=== PATIENT | female | born 1935 | race Caucasian/White ===

== ENCOUNTER 2016-08-01 10:44 | Emergency (ER) | payer MEDICARE ==
--- NOTE | 2016-08-01 11:10 | ER Document Report ---
ED Medical Screen (RME) - General Stated Complaint: FALL/RIB PAIN Notes: 81 yo female c/o left rib pain. pt tripped over her shoe and fell to floor hitting her left ribs and left muslim. + blood thinners, takes ASA daily. 2 cm laceration to left muslim, no active bleeding. + tenderness left lateral ribs TRAVEL OUTSIDE OF THE [place] IN LAST 30 DAYS: No - Related Data Allergies/Adverse Reactions: No Known Allergies Allergy (Unverified 04/02/14 09:12) Past Medical History - Past Medical History Cardiac Medical History: Reports: Hx Heart Attack - ? 2001, Hx Hypertension - on med Denies: Hx Coronary Artery Disease Pulmonary Medical History: Denies: Hx Asthma, Hx Bronchitis, Hx COPD, Hx Pneumonia Neurological Medical History: Denies: Hx Cerebrovascular Accident, Hx Seizures Musculoskeltal Medical History: Reports Hx Arthritis - Immunizations Hx Diphtheria, Pertussis, Tetanus Vaccination: No Physical Exam - Vital signs Vitals: Temp Pulse Resp BP Pulse Ox 98.2 F 70 18 158/74 H 97 08/01/16 11:03 08/01/16 11:03 08/01/16 11:03 08/01/16 11:03 08/01/16 11:03 Course - Vital Signs Vital signs: Temp Pulse Resp BP Pulse Ox 98.2 F 70 18 158/74 H 97 08/01/16 11:03 08/01/16 11:03 08/01/16 11:03 08/01/16 11:03 08/01/16 11:03
--- NOTE | 2016-08-01 15:29 | ER Document Report ---
ED General <ANNMARIE REYNOLDS - Last Filed: 08/01/16 15:50> - General Mode of Arrival: Ambulatory Information source: Patient TRAVEL OUTSIDE OF THE [place] IN LAST 30 DAYS: No - HPI Patient complains to provider of: Left Rib Pain Onset: Yesterday Onset/Duration: Sudden Associated symptoms: Other - Left rib pain, left forehead pain.. denies: Nausea , Vomiting <COLUMBA COVARRUBIAS - Last Filed: 08/01/16 16:04> - General Chief Complaint: Rib Pain Stated Complaint: FALL/RIB PAIN Notes: Patient is an 81-year-old female presenting to the emergency department after she tripped over her shoes last night and landed on her left side. Patient is concerned of left rib pain and left forehead pain from a small laceration. Patient denies any loss of consciousness, nausea, or vomiting. Patient states that she can walk normally. Patient takes an aspirin daily, but denies taking any other blood thinners. (COLUMBA COVARRUBIAS) - Related Data Allergies/Adverse Reactions: No Known Allergies Allergy (Unverified 04/02/14 09:12) Past Medical History - General Information source: Patient - Social History Smoking Status: Former Smoker Frequency of alcohol use: Occasional Drug Abuse: None Family History: Reviewed & Not Pertinent Patient has suicidal ideation: No Patient has homicidal ideation: No - Past Medical History Cardiac Medical History: Reports: Hx Heart Attack - ? 2001, Hx Hypercholesterolemia, Hx Hypertension - on med Denies: Hx Coronary Artery Disease Musculoskeltal Medical History: Reports Hx Arthritis Past Surgical History: Reports: Hx Breast Surgery - lumpectomy left - Immunizations Hx Diphtheria, Pertussis, Tetanus Vaccination: No Hx Pneumococcal Vaccination: 02/19/05 <COLUMBA COVARRUBIAS - Last Filed: 08/01/16 16:04> Review of Systems - Review of Systems Constitutional: No symptoms reported EENT: No symptoms reported Cardiovascular: No symptoms reported Respiratory: No symptoms reported Gastrointestinal: No symptoms reported. denies: Nausea, Vomiting Genitourinary: No symptoms reported Female Genitourinary: No symptoms reported Musculoskeletal: See HPI, Other - Left forehead pain, left rib pain. Skin: No symptoms reported Hematologic/Lymphatic: No symptoms reported Neurological/Psychological: No symptoms reported. denies: Weakness, Lost consciousness -: Yes All other systems reviewed and negative <COLUMBA COVARRUBIAS - Last Filed: 08/01/16 16:04> Physical Exam - Vital signs Interpretation: Hypertensive - General General appearance: Appears well, Alert - HEENT Head: Normocephalic, Other - 1 cm laceration to left forehead, well approximated and linear. Eyes: Normal Extraocular movements intact: Yes Pupils: PERRL - Respiratory Respiratory status: No respiratory distress Chest status: Nontender Breath sounds: Normal Chest palpation: Normal - Cardiovascular Rhythm: Regular Heart sounds: Normal auscultation Murmur: No - Abdominal Inspection: Normal Distension: No distension Bowel sounds: Normal Tenderness: Tender - Reproducable tenderness with no crepitance or step-off over left lower 8th and 9th rib anterior axillary line. - Back Back: Normal, Nontender - Extremities General lower extremity: Normal inspection, Nontender Forearm: Other - Small contusion to left forearm. - Neurological Neuro grossly intact: Yes Cognition: Normal Orientation: AAOx4 Ovando Coma Scale Eye Opening: Spontaneous Ovando Coma Scale Verbal: Oriented Marie Coma Scale Motor: Obeys Commands Marie Coma Scale Total: 15 Speech: Normal - Psychological Associated symptoms: Normal affect, Normal mood - Skin Skin Temperature: Warm Skin Moisture: Dry <COLUMBA COVARRUBIAS - Last Filed: 08/01/16 16:04> - Vital signs Vitals: Temp Pulse Resp BP Pulse Ox 98.2 F 70 18 158/74 H 97 08/01/16 11:03 08/01/16 11:03 08/01/16 11:03 08/01/16 11:03 08/01/16 11:03 Course - Diagnostic Test Radiology reviewed: Image reviewed, Reports reviewed <ANNMARIE REYNOLDS - Last Filed: 08/01/16 15:50> <COLUMBA COVARRUBIAS - Last Filed: 08/01/16 16:04> - Re-evaluation Re-evalutation: 08/01/16 15:46 I discussed radiology findings with the patient. Head injury and rib fracture instructions were discussed. She understands to return for worsening problem or concern, signs of pneumonia. She requests to take Aleve at home for pain. We opted not to close her laceration as with traction I could only open it just a minimal amount and with normal facial movements she had no separation with the wound edges extremely well approximated. Tetanus will be updated ( ANNMARIE REYNOLDS) - Vital Signs Vital signs: Temp Pulse Resp BP Pulse Ox 98.2 F 70 18 158/74 H 97 08/01/16 11:03 08/01/16 11:03 08/01/16 11:03 08/01/16 11:03 08/01/16 11:03 - Diagnostic Test Radiology results interpreted by me: 08/01/16 15:30 CT NAD, Ribs NAD (ANNMARIE REYNOLDS Juhi) Discharge <ANNMARIE REYNOLDS - Last Filed: 08/01/16 15:50> <COLUMBA COVARRUBIAS - Last Filed: 08/01/16 16:04> - Discharge Clinical Impression: Laceration of face, Contusion of chest wall with intact skin Condition: Good Disposition: HOME, SELF-CARE Instructions: Antibiotic Ointment Protection ([facility]), Tetanus Immunization Given ([facility]) Additional Instructions: Keep wound clean and apply light coat of neosporin. Return for any problem or concern. Return for increasing shortness of breath, signs of pneumonia such as fever, productive cough. Use an analgesic such as Aleve and take large breaths and cough to keep your lung expanding. Follow up with her primary care physician for further evaluation in the next 2-3 days if you're still having significant discomfort. Scribe Documentation - Scribe Written by Michael:: 08/01/2016 <COLUMBA COVARRUBIAS - Last Filed: 08/01/16 16:04>
[2016-08-01] MEDS ORDERED: TETANUS/DIPHTHERIA TOX-ADULT 0.5 ML SYR (>=7YO) IM ONE (15:48)
[2016-08-01 16:04] VITALS: BP 129/93
== END 2016-08-01 16:05 | disposition home or self-care (01) ==
LOC: ER 10:44
DX: S01.81XA Laceration without foreign body of other part of head, initial encounter (principal); S20.219A Contusion of unspecified front wall of thorax, initial encounter; R07.81 Pleurodynia; R51 Headache; W01.0XXA Fall on same level from slipping, tripping and stumbling without subsequent striking against object, initial encounter; E78.00 Pure hypercholesterolemia, unspecified; I10 Essential (primary) hypertension; Z87.891 Personal history of nicotine dependence; Z79.82 Long term (current) use of aspirin; I25.2 Old myocardial infarction; Z23 Encounter for immunization
CPT/HCPCS: 70450; 90471; 90714; 99284

== ENCOUNTER 2017-10-08 13:17 | Observation (INO) | payer MEDICARE ==
[2017-10-08] MEDS ORDERED: ASPIRIN 81 MG TABLET, CHEWABLE PO ONE (14:43)
--- NOTE | 2017-10-08 14:44 | ER Document Report ---
ED Medical Screen (RME) - General Chief Complaint: Palpitations Stated Complaint: ACCELERATED HEART RATE Time Seen by Provider: 10/08/17 14:36 Notes: 82 years old female presents today with on and off dizziness and lightheadedness , episodes of palpitation for the last 2-3 days. And also had tremors of the upper limbs. Denies any chest pain denies any fever chills cough or other constitutional symptoms. I have greeted and performed a rapid initial assessment of this patient. A comprehensive ED assessment and evaluation of the patient, analysis of test results and completion of the medical decision making process will be conducted by additional ED providers. PHYSICAL EXAMINATION: GENERAL: Well-appearing, well-nourished and in no acute distress. Pleasant elderly female HEAD: Atraumatic, normocephalic. EYES: Pupils equal round extraocular movements intact, conjunctiva are normal. ENT: Nares patent NECK: Normal range of motion LUNGS: No respiratory distress Musculoskeletal: Normal range of motion NEUROLOGICAL: Normal speech, normal gait. PSYCH: Normal mood, normal affect. SKIN: Warm, Dry, normal turgor, no rashes or lesions noted. TRAVEL OUTSIDE OF THE [place] IN LAST 30 DAYS: No - Related Data Allergies/Adverse Reactions: No Known Allergies Allergy (Unverified 04/02/14 09:12) Past Medical History - Social History Chew tobacco use (# tins/day): No Frequency of alcohol use: Rare Drug Abuse: None - Past Medical History Cardiac Medical History: Reports: Hx Heart Attack - ? 2001, Hx Hypercholesterolemia, Hx Hypertension - on med Denies: Hx Coronary Artery Disease Pulmonary Medical History: Denies: Hx Asthma, Hx Bronchitis, Hx COPD, Hx Pneumonia Neurological Medical History: Denies: Hx Cerebrovascular Accident, Hx Seizures Renal/ Medical History: Denies: Hx Peritoneal Dialysis Musculoskeltal Medical History: Reports Hx Arthritis Past Surgical History: Reports: Hx Breast Surgery - lumpectomy left - Immunizations Hx Diphtheria, Pertussis, Tetanus Vaccination: No Physical Exam - Vital signs Vitals: Temp Pulse Resp BP Pulse Ox 97.6 F 78 18 144/65 H 94 10/08/17 13:25 10/08/17 13:25 10/08/17 13:25 10/08/17 13:25 10/08/17 13:25 Course - Vital Signs Vital signs: Temp Pulse Resp BP Pulse Ox 97.6 F 78 18 144/65 H 94 10/08/17 13:25 10/08/17 13:25 10/08/17 13:25 10/08/17 13:25 10/08/17 13:25
[2017-10-08 15:13] LABS: ABSOLUTE BASOPHILS # (AUTO) 0.1 10^3/uL (0.0-0.2); ABSOLUTE LYMPHOCYTES (AUTO) 1.6 10^3/uL (0.5-4.7); ABSOLUTE MONOCYTES (AUTO) 1.1 10^3/uL (0.1-1.4); BASOPHILS % (AUTO) 0.6 % (0-2); EOSINOPHILS % (AUTO) 0.4 % (0-6); HEMATOCRIT 40.9 % (36.0-47.0); HEMOGLOBIN 13.8 g/dL (12.0-15.5); LYMPHOCYTES % (AUTO) 14.5 % (13-45); MEAN CORPUSCULAR HGB CONC 33.8 g/dL (32.0-36.0); MEAN CORPUSCULAR VOLUME 89 fl (80-97); MONOCYTES % (AUTO) 10.4 % (3-13); PLATELET COUNT 319 10^3/uL (150-450); RED BLOOD COUNT 4.62 10^6/uL (3.72-5.28); RED CELL DISTRIBUTION WIDTH 13.8 % (11.5-14.0); SEGMENTED NEUTROPHILS % (AUTO) 74.1 % (42-78); TOTAL CELLS COUNTED % (AUTO) 100 %; WHITE BLOOD COUNT 10.8 10^3/uL (4.0-10.5)
--- NOTE | 2017-10-08 15:24 | RADIOLOGY REPORT (SQ) ---
EXAM DESCRIPTION: CHEST SINGLE VIEW COMPLETED DATE/TIME: 10/08/2017 3:18 pm REASON FOR STUDY: Shortness of breath COMPARISON: 03/21/2009 EXAM PARAMETERS: NUMBER OF VIEWS: One view. TECHNIQUE: Single frontal radiographic view of the chest acquired. RADIATION DOSE: NA LIMITATIONS: None. FINDINGS: LUNGS AND PLEURA: No opacities, masses or pneumothorax. No pleural effusion. MEDIASTINUM AND HILAR STRUCTURES: No masses. Contour normal. HEART AND VASCULAR STRUCTURES: Heart normal in size. Normal vasculature. BONES: No acute findings. HARDWARE: None in the chest. OTHER: No other significant finding. IMPRESSION: NO ACUTE RADIOGRAPHIC FINDING IN THE CHEST. TECHNICAL DOCUMENTATION: JOB ID: [id number] [employer]- All Rights Reserved Reading location - IP/workstation name: [email or web address]
[2017-10-08 15:29] LABS: ALANINE AMINOTRANSFERASE 32 U/L (9-52); ALBUMIN 4.3 g/dL (3.5-5.0); ALKALINE PHOSPHATASE 89 U/L (38-126); ANION GAP 10 (5-19); ASPARTATE AMINO TRANSFERASE 39 U/L (14-36); BILIRUBIN,DIRECT 0.2 mg/dL (0.0-0.4); BILIRUBIN,TOTAL 0.5 mg/dL (0.2-1.3); BLOOD UREA NITROGEN 40 mg/dL (7-20); CALCIUM 10.5 mg/dL (8.4-10.2); CARBON DIOXIDE 32 mmol/L (22-30); CHLORIDE 97 mmol/L (98-107); CREATINE KINASE 69 U/L (30-135); GLUCOSE 102 mg/dL (75-110); POTASSIUM 4.4 mmol/L (3.6-5.0); SODIUM 138.8 mmol/L (137-145); TOTAL PROTEIN 7.2 g/dL (6.3-8.2)
[2017-10-08 15:41] LABS: CREATINE KINASE MB 2.95 ng/mL (<4.55); TROPONIN I 0.029 ng/mL
[2017-10-08] MEDS ORDERED: NORMAL SALINE 500 ML IV ONE (16:44)
--- NOTE | 2017-10-08 16:44 | ER Document Report ---
ED General - General Chief Complaint: Palpitations Stated Complaint: ACCELERATED HEART RATE Time Seen by Provider: 10/08/17 14:36 Mode of Arrival: Ambulatory Information source: Patient, Relative Notes: 82-year-old female with hypertension, hyperlipidemia, CAD, previous [place] in 2001 and an ablation in 2009 for an "irregular heartbeat" presents from home with her son with complaint of palpitations. Patient states that approximately 5 hours prior to arrival she experienced an episode of palpitations while sitting at the kitchen table. She states she tried to stand up and felt off balance. Patient had a similar episode of palpitations yesterday evening while at rest which self resolved. Patient denies any recent illnesses, fever, chills, chest pain, shortness of breath, diaphoresis. She does admit that she was nauseous this morning but had no vomiting. Patient denies any black or bloody stools, recent hospitalizations, change in medications.. TRAVEL OUTSIDE OF THE [place] IN LAST 30 DAYS: No - HPI Onset: Just prior to arrival Onset/Duration: Sudden, Gone Quality of pain: No pain Severity: None Associated symptoms: Nausea, Other - Dizziness. denies: Chest pain, Nonproductive cough, Headache, Vomiting, Shortness of breath Exacerbated by: Denies Relieved by: Denies Similar symptoms previously: Yes Recently seen / treated by doctor: Yes - Related Data Allergies/Adverse Reactions: No Known Allergies Allergy (Verified 10/08/17 22:01) Past Medical History - General Information source: Patient, Relative, [facility] Records - Social History Smoking Status: Former Smoker Chew tobacco use (# tins/day): No Frequency of alcohol use: Rare Drug Abuse: None Lives with: Alone Family History: Reviewed & Not Pertinent Patient has suicidal ideation: No Patient has homicidal ideation: No - Past Medical History Cardiac Medical History: Reports: Hx Heart Attack - ? 2001, Hx Hypercholesterolemia, Hx Hypertension - on med Denies: Hx Coronary Artery Disease Pulmonary Medical History: Denies: Hx Asthma, Hx Bronchitis, Hx COPD, Hx Pneumonia Neurological Medical History: Denies: Hx Cerebrovascular Accident, Hx Seizures Renal/ Medical History: Denies: Hx Peritoneal Dialysis Musculoskeltal Medical History: Reports Hx Arthritis Past Surgical History: Reports: Hx Breast Surgery - lumpectomy left - Immunizations Hx Diphtheria, Pertussis, Tetanus Vaccination: No Hx Pneumococcal Vaccination: 02/19/05 Review of Systems - Review of Systems Notes: REVIEW OF SYSTEMS: CONSTITUTIONAL : Denies fever, chills, or sweats. Denies recent illness. Denies weight loss, recent hospitalizations. EENT: Denies visula changes, eye pain. Denies nasal or sinus congestion or discharge. Denies sore throat, oral lesions, difficulty swallowing. CARDIOVASCULAR: Denies chest pain. Denies lower extremity edema. RESPIRATORY: Denies cough, cold, or chest congestion. Denies shortness of breath, difficulty breathing, or wheezing. GASTROINTESTINAL: Denies abdominal pain or distention. Denies vomiting, or diarrhea. Denies blood in vomitus, stools, or per rectum. Denies black, tarry stools. Denies constipation. GENITOURINARY: Denies difficulty urinating, painful urination, burning, frequency, blood in urine, or vaginal discharge. MUSCULOSKELETAL: Denies back or neck pain or stiffness. Denies joint pain or swelling. SKIN: Denies rash, lesions or sores. HEMATOLOGIC : Denies easy bruising or bleeding. LYMPHATIC: Denies swollen, enlarged glands. NEUROLOGICAL: Denies confusion or altered mental status. Denies passing out or loss of consciousness. Denies dizziness or lightheadedness. Denies headache. Denies weakness or paralysis or loss of use of either side. Denies problems with gait or speech. Denies sensory loss, numbness, or tingling. Denies seizures. PSYCHIATRIC: Denies anxiety or stress. Denies depression, suicidal ideation, or homicidal ideation. Physical Exam - Vital signs Vitals: Temp Pulse Resp BP Pulse Ox 97.6 F 78 18 144/65 H 94 10/08/17 13:25 10/08/17 13:25 10/08/17 13:25 10/08/17 13:25 10/08/17 13:25 - Notes Notes: PHYSICAL EXAMINATION: GENERAL: Well-appearing, well-nourished and in no acute distress. HEAD: Atraumatic, normocephalic. EYES: Pupils equal round and reactive to light, extraocular movements intact, conjunctiva are normal. ENT: Nares patent, oropharynx clear without exudates. Moist mucous membranes. NECK: Normal range of motion, supple without lymphadenopathy LUNGS: Breath sounds clear to auscultation bilaterally and equal. No wheezes rales or rhonchi. HEART: Regular rate and rhythm without murmurs ABDOMEN: Soft, nontender, nondistended abdomen. No guarding, no rebound. No masses appreciated. Female : deferred Musculoskeletal: Normal range of motion, no pitting or edema. No cyanosis. NEUROLOGICAL: Cranial nerves grossly intact. Normal speech, normal gait. Normal sensory, motor exams PSYCH: Normal mood, normal affect. SKIN: Warm, Dry, normal turgor, no rashes or lesions noted. Course - Re-evaluation Re-evalutation: Laboratory 10/08/17 10/08/17 10/08/17 15:00 15:00 15:00 WBC 10.8 H RBC 4.62 Hgb 13.8 Hct 40.9 MCV 89 MCH 30.0 MCHC 33.8 RDW 13.8 Plt Count 319 Seg Neutrophils % 74.1 Lymphocytes % 14.5 Monocytes % 10.4 Eosinophils % 0.4 Basophils % 0.6 Absolute Neutrophils 8.0 Absolute Lymphocytes 1.6 Absolute Monocytes 1.1 Absolute Eosinophils 0.0 Absolute Basophils 0.1 Sodium 138.8 Potassium 4.4 Chloride 97 L Carbon Dioxide 32 H Anion Gap 10 BUN 40 H Creatinine 0.98 Est GFR ( Amer) > 60 Est GFR (Non-Af Amer) 54 L Glucose 102 Calcium 10.5 H Phosphorus Magnesium Total Bilirubin 0.5 Direct Bilirubin 0.2 Neonat Total Bilirubin Not Reportable Neonat Direct Bilirubin Not Reportable Neonat Indirect Bili Not Reportable AST 39 H ALT 32 Alkaline Phosphatase 89 Creatine Kinase 69 CK-MB (CK-2) 2.95 Troponin I 0.029 Total Protein 7.2 Albumin 4.3 TSH Free T4 Free T3 pg/mL 10/08/17 10/08/17 10/08/17 15:00 15:00 18:12 WBC RBC Hgb Hct MCV MCH MCHC RDW Plt Count Seg Neutrophils % Lymphocytes % Monocytes % Eosinophils % Basophils % Absolute Neutrophils Absolute Lymphocytes Absolute Monocytes Absolute Eosinophils Absolute Basophils Sodium Potassium Chloride Carbon Dioxide Anion Gap BUN Creatinine Est GFR ( Amer) Est GFR (Non-Af Amer) Glucose Calcium Phosphorus 3.5 Magnesium 2.2 Total Bilirubin Direct Bilirubin Neonat Total Bilirubin Neonat Direct Bilirubin Neonat Indirect Bili AST ALT Alkaline Phosphatase Creatine Kinase CK-MB (CK-2) Troponin I Total Protein Albumin TSH Cancelled 0.41 L Free T4 Cancelled 1.70 Free T3 pg/mL Cancelled 3.42 10/08/17 10/08/17 10/08/17 18:12 19:30 21:14 WBC RBC Hgb Hct MCV MCH MCHC RDW Plt Count Seg Neutrophils % Lymphocytes % Monocytes % Eosinophils % Basophils % Absolute Neutrophils Absolute Lymphocytes Absolute Monocytes Absolute Eosinophils Absolute Basophils Sodium 137.5 Potassium 4.4 Chloride 100 Carbon Dioxide 29 Anion Gap 9 BUN 34 H Creatinine 0.82 Est GFR ( Amer) > 60 Est GFR (Non-Af Amer) > 60 Glucose 90 Calcium 10.0 Phosphorus 3.7 Magnesium 2.0 Total Bilirubin Direct Bilirubin Neonat Total Bilirubin Neonat Direct Bilirubin Neonat Indirect Bili AST ALT Alkaline Phosphatase Creatine Kinase 79 CK-MB (CK-2) Troponin I 0.056 Total Protein Albumin TSH Free T4 Free T3 pg/mL Chest X-Ray 10/08/17 14:43 IMPRESSION: NO ACUTE RADIOGRAPHIC FINDING IN THE CHEST. 10/08/17 17:05 cardiology consult initiated 10/08/17 17:[address] Aceves for cardiology who recommends adding TSH, T3, T4. He is willing to consult on the patient. Patient accepted by hospitalist 10/08/17 23:19 82-year-old female with hypertension, hyperlipidemia, CAD, previous [place] in 2001 and an ablation in 2009 for an "irregular heartbeat" presents from home with her son with complaint of palpitations. Patient states that approximately 5 hours prior to arrival she experienced an episode of palpitations while sitting at the kitchen table. She states she tried to stand up and felt off balance. Patient had a similar episode of palpitations yesterday evening while at rest which self resolved. Patient denies any recent illnesses, fever, chills, chest pain, shortness of breath, diaphoresis. She does admit that she was nauseous this morning but had no vomiting. Patient denies any black or bloody stools, recent hospitalizations, change in medications. Upon arrival patient was placed on site monitor and an EKG was obtained which showed the patient to be in atrial fibrillation with multiple PVCs. PVC is without leukocytosis or anemia. CMP is without electrolyte abnormalities. TSH was found to be mildly low. Magnesium and phosphorus are within normal limits. Troponin was within normal limits. Patient remained stable throughout her ED course. I am concerned that patient is having paroxysmal A. fib with RVR causing her to have palpitations, nausea and dizziness. Patient will be admitted for further evaluation of her palpitations. 10/08/17 23:20 10/08/17 23:22 - Vital Signs Vital signs: Temp Pulse Resp BP Pulse Ox 97.9 F 57 L 16 149/65 H 100 10/08/17 20:54 10/08/17 20:54 10/08/17 20:54 10/08/17 20:54 10/08/17 20:54 - Laboratory Result Diagrams: 10/08/17 15:00 10/08/17 21:14 Laboratory results interpreted by me: 10/08/17 10/08/17 15:00 15:00 WBC 10.8 H Chloride 97 L Carbon Dioxide 32 H BUN 40 H Est GFR (Non-Af Amer) 54 L Calcium 10.5 H AST 39 H - Diagnostic Test Radiology reviewed: Image reviewed, Reports reviewed - EKG Interpretation by Me EKG shows normal: Sinus rhythm Rate: Normal Rhythm: NSR Gurley/QRS: LBBB When compared to previous EKG there are: Changes noted, Other - Multiple PVCs Discharge - Discharge Clinical Impression: Near syncope, Palpitations, Lightheadedness, Diaphoresis, Nausea alone Hypertension Qualifiers: Hypertension type: essential hypertension Qualified Code(s): I10 - Essential ( primary) hypertension Condition: Good Disposition: ADMITTED OBSERVATION Admitting Provider: Hospitalist Unit Admitted: Telemetry
[2017-10-08 16:46] LABS: PHOSPHORUS 3.5 mg/dL (2.5-4.5)
[2017-10-08 19:18] LABS: FREE T3 3.42 pg/mL (2.77-5.27); FREE T4 (FREE THYROXINE) 1.7 ng/dL (0.78-2.19)
[2017-10-08 19:32] LABS: THYROID STIMULATING HORMONE 0.41 uIU/mL (0.47-4.68)
--- NOTE | 2017-10-08 19:44 | PDOC H&P ---
History of Present Illness Admission Date/PCP: 10/08/17 17:34 Patient complains of: Palpitations History of Present Illness: CATY LEE is a 82 year old female With a past history of [place] , previous cardioversion and ablation for "fast heartbeat" in 2009 ; presented to the ED with irregular heartbeat , palpitations and lightheadedness Cardiac monitoring showed the left bundle branch branch block with multiple APCs and VPCs Patient had no chest pain or shortness of breath She was subsequently admitted under hospitalist service and cardiology consult will be obtained in a.m. Past Medical History Cardiac Medical History: Reports: Myocardial Infarction - ? 2001, Hyperlipidema , Hypertension - on med Denies: Coronary Artery Disease Pulmonary Medical History: Denies: Asthma, Bronchitis, Chronic Obstructive Pulmonary Disease (COPD), Pneumonia Neurological Medical History: Denies: Seizures Musculoskeltal Medical History: Reports: Arthritis Hematology: Denies: Anemia Social History Information Source: Patient Lives with: Alone Smoking Status: Former Smoker - Advance Directive Resuscitation Status: Full Code Surrogate healthcare decision maker:: Daughter Meera Family History Parental Family History Reviewed: Yes - Mother of old age and father of heart disease Children Family History Reviewed: Yes Sibling(s) Family History Reviewed.: Yes - Sister had cancer Medication/Allergy Home Medications: Aspirin [Aspirin EC] 81 mg PO DAILY 04/02/14 Ergocalciferol (Vitamin D2) [Vitamin D2] 2,000 unit PO ASDIR 04/02/14 Hydrochlorothiazide 25 mg PO DAILY 04/02/14 Letrozole 2.5 mg PO DAILY 04/02/14 Lisinopril 20 mg PO DAILY 04/02/14 Multivitamin [Tab-A-Haley] 1 each PO DAILY 04/02/14 [place]-3 Fatty Acids [Fish Oil] 300 mg PO DAILY 04/02/14 Simvastatin 20 mg PO DAILY 04/02/14 Vitamin E 100 unit PO DAILY 04/02/14 Cetirizine HCl 1 tab PO DAILY 10/08/17 Simvastatin 1 tab PO DAILY 10/08/17 Allergies/Adverse Reactions: No Known Allergies Allergy (Unverified 04/02/14 09:12) Review of Systems Constitutional: ABSENT: chills, fever(s), headache(s), weight gain, weight loss Eyes: ABSENT: visual disturbances Ears: ABSENT: hearing changes Cardiovascular: PRESENT: as per HPI, palpitations. ABSENT: chest pain, dyspnea on exertion, orthropnea Respiratory: ABSENT: cough, hemoptysis Gastrointestinal: ABSENT: abdominal pain, constipation, diarrhea, hematemesis, hematochezia, nausea, vomiting Genitourinary: ABSENT: dysuria, hematuria Musculoskeletal: ABSENT: joint swelling Integumentary: ABSENT: rash, wounds Neurological: ABSENT: abnormal gait, abnormal speech, confusion, dizziness, focal weakness, syncope Psychiatric: ABSENT: anxiety, depression, homidical ideation, suicidal ideation Endocrine: ABSENT: cold intolerance, heat intolerance, polydipsia, polyuria Hematologic/Lymphatic: ABSENT: easy bleeding, easy bruising Physical Exam Vital Signs: Temp Pulse Resp BP Pulse Ox 97.6 F 78 18 126/66 H 97 10/08/17 13:25 10/08/17 13:25 10/08/17 16:01 10/08/17 16:01 10/08/17 17:17 General appearance: PRESENT: no acute distress, cooperative Head exam: PRESENT: atraumatic, normocephalic Eye exam: PRESENT: conjunctiva pink, EOMI, PERRLA. ABSENT: scleral icterus Neck exam: ABSENT: carotid bruit, JVD, lymphadenopathy, thyromegaly Respiratory exam: PRESENT: clear to auscultation clare. ABSENT: rales, rhonchi, wheezes Cardiovascular exam: PRESENT: irregular rhythm. ABSENT: diastolic murmur, rubs , systolic murmur Pulses: PRESENT: normal dorsalis pedis pul Vascular exam: PRESENT: normal capillary refill GI/Abdominal exam: PRESENT: normal bowel sounds, soft. ABSENT: distended, guarding, mass, organolmegaly, rebound, tenderness Extremities exam: PRESENT: full ROM. ABSENT: calf tenderness, clubbing, pedal edema Neurological exam: PRESENT: alert Skin exam: PRESENT: dry, intact, warm. ABSENT: cyanosis, rash Results Laboratory Results: 10/08/17 18:12 TSH 0.41 L Free T4 1.70 Free T3 pg/mL 3.42 10/08/17 10/08/17 15:00 15:00 WBC 10.8 H Hgb 13.8 Hct 40.9 Sodium 138.8 Potassium 4.4 Chloride 97 L Carbon Dioxide 32 H BUN 40 H Creatinine 0.98 Calcium 10.5 H EKG Comments: Normal sinus rhythm left bundle branch block Multiple APCs and VPCs Impressions: Chest X-Ray 10/08/17 14:43 IMPRESSION: NO ACUTE RADIOGRAPHIC FINDING IN THE CHEST. Assessment & Plan - Diagnosis (1) Cardiac arrhythmia Qualifiers: Is this a current diagnosis for this admission?: Yes (2) History of coronary artery disease Is this a current diagnosis for this admission?: Yes (3) Hypertension Qualifiers: Hypertension type: essential hypertension Qualified Code(s): I10 - Essential (primary) hypertension Is this a current diagnosis for this admission?: Yes (4) Lightheadedness Is this a current diagnosis for this admission?: Yes - Time Time Spent with patient: We will admit the patient for observation to telemetry unit Serial cardiac enzymes Cardiac monitoring Echocardiogram will be scheduled in a.m. Cardiology consult in a.m. Thyroid profile was requested Time Spent: 50 to 70 Minutes
[2017-10-08] MEDS: METOPROLOL TARTRATE 25 MG TABLET PO SCH (21:20)
[2017-10-08] MEDS ORDERED: ENOXAPARIN SODIUM INJ 40 MG/0.4 ML DISP.SYRIN SUBCUT ONE (21:30)
[2017-10-08] MEDS ORDERED: METOPROLOL TARTRATE PF/INJ 5 MG/5 ML SDV IV ONE (21:42)
[2017-10-08] MEDS ORDERED: LISINOPRIL 10 MG TABLET PO ONE (22:00)
[2017-10-08] MEDS ORDERED: SIMVASTATIN 10 MG TABLET PO SCH (22:00)
[2017-10-08 22:09] LABS: ANION GAP 9 (5-19); BLOOD UREA NITROGEN 34 mg/dL (7-20); CARBON DIOXIDE 29 mmol/L (22-30); CHLORIDE 100 mmol/L (98-107); CREATINE KINASE 79 U/L (30-135); GLUCOSE 90 mg/dL (75-110); PHOSPHORUS 3.7 mg/dL (2.5-4.5); POTASSIUM 4.4 mmol/L (3.6-5.0); SODIUM 137.5 mmol/L (137-145)
[2017-10-08] MEDS ORDERED: AMIODARONE HCL 150 MG in DEXTROSE 5%-WATER 100 ML IV ONE (22:15)
[2017-10-08] MEDS ORDERED: DEXTROSE 5%-WATER 500 ML with AMIODARONE HCL 900 MG IV PRN ×2 (22:15)
[2017-10-08] MEDS: NORMAL SALINE 1000 ML 1,000 ML IV PRN (22:47)
--- NOTE | 2017-10-08 23:43 | EKG REPORT ---
SEVERITY:- ABNORMAL ECG - ATRIAL FIBRILLATION LEFT BUNDLE BRANCH BLOCK : Confirmed by: Radha Marinelli 08-Oct-2017 23:41:53
--- NOTE | 2017-10-08 23:43 | EKG REPORT ---
SEVERITY:- ABNORMAL ECG - SINUS RHYTHM LEFT BUNDLE BRANCH BLOCK : Confirmed by: Radha Marinelli 08-Oct-2017 23:42:32
--- NOTE | 2017-10-08 23:43 | EKG REPORT ---
SEVERITY:- ABNORMAL ECG - SINUS RHYTHM PROBABLE LEFT ATRIAL ABNORMALITY LEFT BUNDLE BRANCH BLOCK : Confirmed by: Radha Marinelli 08-Oct-2017 23:42:03
[2017-10-09 01:58] LABS: CREATINE KINASE MB 3.07 ng/mL (<4.55); TROPONIN I 0.045 ng/mL
[2017-10-09 08:09] LABS: CHOLESTEROL 167.92 mg/dL (0-200); CREATINE KINASE 52 U/L (30-135); TRIGLYCERIDES 97 mg/dL (<150)
[2017-10-09 08:24] LABS: DIRECT LDL 75 mg/dL (<100)
[2017-10-09 08:27] LABS: CREATINE KINASE MB 2.57 ng/mL (<4.55); TROPONIN I 0.027 ng/mL
--- NOTE | 2017-10-09 09:36 | PDOC TRANSFER SUMMARY ---
General Admission Date/PCP: 10/08/17 17:34 Admission Date: 10/08/17 Transfer Date: 10/09/17 Accepting Facility: [facility] Resuscitation Status: Full Code - Transfer Diagnosis (1) Cardiac arrhythmia Is this a current diagnosis for this admission?: Yes (2) History of coronary artery disease Is this a current diagnosis for this admission?: Yes (3) Hypertension Is this a current diagnosis for this admission?: Yes (4) Near syncope Is this a current diagnosis for this admission?: Yes (5) Brendon-tachy syndrome Is this a current diagnosis for this admission?: Yes - Transfer Medications Home Medications: Hydrochlorothiazide 25 mg PO DAILY 04/02/14 Letrozole 2.5 mg PO DAILY 04/02/14 Lisinopril 20 mg PO BID 04/02/14 Multivitamin [Tab-A-Haley] 1 each PO DAILY 04/02/14 Simvastatin 20 mg PO DAILY 04/02/14 Aspirin [Aspirin 325 mg Tablet] 325 mg PO DAILY 10/08/17 Calcium Carbonate [Calcium] 600 mg PO DAILY 10/08/17 Cetirizine HCl 10 mg PO DAILY 10/08/17 [place]-3/Dha/Epa/Fish Oil [Fish Oil 1,000 mg Softgel] 1,000 mg PO DAILY 10/08/17 Vitamin E (Dl, Acetate) [Vitamin E 400 Unit Capsule] 400 unit PO DAILY 10/08/17 Transfer Medications: Current Medications Aspirin (Ecotrin 81 Mg Ec Tablet) 81 mg PO DAILY HERMELINDA Stop: 11/08/17 09:59 Cetirizine HCl (Zyrtec 10 Mg Tablet) 10 mg PO DAILY HERMELINDA Stop: 11/08/17 09:59 Enoxaparin Sodium (Lovenox Inj 40 Mg/0.4 Ml Disp.Syrin) 40 mg SUBCUT DAILY HERMELINDA Stop: 11/08/17 09:59 Sodium Chloride (Nacl 0.9% 1000 Ml Iv Soln) 1,000 mls @ 75 mls/hr IV CONTINUOUS PRN PRN Reason: THIS MED IS NOT "PRN" Stop: 11/07/17 19:47 Last Admin: 10/08/17 22:47 Dose: 1,000 ml Amiodarone HCl 900 mg/ (Dextrose) 500 mls @ 0 mls/hr IV CONTINUOUS PRN; Protocol; Per Protocol PRN Reason: THIS MED IS NOT "PRN" Stop: 10/11/17 22:14 Last Admin: 10/08/17 22:45 Dose: 900 mg Letrozole (Femara 2.5 Mg Tablet) 2.5 mg PO DAILY HERMELINDA Stop: 11/08/17 09:59 Metoprolol Tartrate (Lopressor 25 Mg Tablet) 25 mg PO Q12 HERMELINDA Stop: 11/07/17 21:59 Last Admin: 10/08/17 21:20 Dose: 25 mg Multivitamins (Tab-A-Haley (Multiple Vitamin) Tablet) 1 tab PO DAILY HERMELINDA Stop: 11/08/17 09:59 Patient Own Medication (Ergocalciferol (Vitamin D2) [Vitamin D2]) 2,000 unit PO DAILY HERMELINDA Stop: 11/08/17 09:59 Patient Own Medication ([place]-3 Fatty Acids [Fish Oil]) 300 mg PO DAILY HERMELINDA Stop: 11/08/17 09:59 Simvastatin (Zocor 10 Mg Tablet) 20 mg PO QHS HERMELINDA Stop: 11/07/17 21:59 Last Admin: 10/08/17 21:20 Dose: 20 mg - Allergies Allergies/Adverse Reactions: No Known Allergies Allergy (Verified 10/08/17 22:01) Hospital Course Hospital Course: Mrs. 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 fib with RVR -or nonsustained V. tach Cardiology consult was obtained and it was suggested that patient be transferred to a tertiary center for further management - pacemaker- Patient has remained hemodynamically stable Troponins are in intermediate range EKG this am is NSR LBBB Physical Exam Vital Signs: Temp Pulse Resp BP Pulse Ox 97.6 F 61 20 148/79 H 97 10/09/17 07:46 10/09/17 07:46 10/09/17 07:46 10/09/17 07:46 10/09/17 07:46 Intake & Output 10/08/17 10/09/17 10/10/17 00:59 00:59 00:59 Intake Total 0 852 Balance 0 852 Weight 75.1 kg 74.3 kg General appearance: PRESENT: no acute distress, well-developed, well-nourished Head exam: PRESENT: atraumatic, normocephalic Eye exam: PRESENT: conjunctiva pink, EOMI, PERRLA. ABSENT: scleral icterus Ear exam: PRESENT: normal external ear exam Mouth exam: PRESENT: moist, tongue midline Neck exam: ABSENT: carotid bruit, JVD, lymphadenopathy, thyromegaly Respiratory exam: PRESENT: clear to auscultation clare. ABSENT: rales, rhonchi, wheezes Cardiovascular exam: PRESENT: RRR. ABSENT: diastolic murmur, rubs, systolic murmur Pulses: PRESENT: normal dorsalis pedis pul Vascular exam: PRESENT: normal capillary refill GI/Abdominal exam: PRESENT: normal bowel sounds, soft. ABSENT: distended, guarding, mass, organolmegaly, rebound, tenderness Rectal exam: PRESENT: deferred Extremities exam: PRESENT: full ROM. ABSENT: calf tenderness, clubbing, pedal edema Neurological exam: PRESENT: alert, awake, oriented to person, oriented to place , oriented to time, oriented to situation, CN II-XII grossly intact. ABSENT: motor sensory deficit Psychiatric exam: PRESENT: appropriate affect, normal mood. ABSENT: homicidal ideation, suicidal ideation Skin exam: PRESENT: dry, intact, warm. ABSENT: cyanosis, rash Results Laboratory Results: 10/08/17 21:14 10/08/17 10/08/17 10/08/17 18:12 18:12 21:14 Sodium 137.5 Potassium 4.4 Chloride 100 Carbon Dioxide 29 Anion Gap 9 BUN 34 H Creatinine 0.82 Est GFR ( Amer) > 60 Est GFR (Non-Af Amer) > 60 Glucose 90 Calcium 10.0 Phosphorus 3.7 Magnesium 2.0 Triglycerides Cholesterol LDL Cholesterol Direct VLDL Cholesterol HDL Cholesterol TSH 0.41 L Free T4 1.70 Free T3 pg/mL 3.42 10/09/17 07:35 Sodium Potassium Chloride Carbon Dioxide Anion Gap BUN Creatinine Est GFR ( Amer) Est GFR (Non-Af Amer) Glucose Calcium Phosphorus Magnesium Triglycerides 97 Cholesterol 167.92 LDL Cholesterol Direct 75 VLDL Cholesterol 19.0 HDL Cholesterol 67 TSH Free T4 Free T3 pg/mL 10/08/17 10/08/17 10/09/17 19:30 21:14 01:25 Creatine Kinase 79 CK-MB (CK-2) 3.07 Troponin I 0.056 0.045 10/09/17 10/09/17 07:35 07:35 Creatine Kinase 52 CK-MB (CK-2) 2.57 Troponin I 0.027 Impressions: Chest X-Ray 10/08/17 14:43 IMPRESSION: NO ACUTE RADIOGRAPHIC FINDING IN THE CHEST. Plan Discharge Plan: transfer to [facility] when a bed is available Time Spent: Greater than 30 Minutes
[2017-10-09] MEDS ORDERED: ASPIRIN 81 MG TABLET, ENT COATED PO SCH (10:00)
[2017-10-09] MEDS ORDERED: ENOXAPARIN SODIUM INJ 40 MG/0.4 ML DISP.SYRIN SUBCUT SCH (10:00)
[2017-10-09] MEDS ORDERED: (PENDING PHARMACY ID) (Omega-3 Fatty Acids [Fish Oil] 300 MG) PO SCH (10:00)
[2017-10-09] MEDS ORDERED: CETIRIZINE HCL PO SCH (10:00)
[2017-10-09] MEDS ORDERED: CETIRIZINE 10 MG TABLET PO SCH (10:00)
[2017-10-09] MEDS ORDERED: LISINOPRIL 10 MG TABLET PO SCH (10:00)
[2017-10-09] MEDS ORDERED: LETROZOLE 2.5 MG TABLET PO SCH (10:00)
[2017-10-09] MEDS ORDERED: (PENDING PHARMACY ID) (Ergocalciferol (Vitamin D2) [Vitamin D2] 2,000 UNIT) PO SCH (10:00)
[2017-10-09] MEDS ORDERED: (PENDING PHARMACY ID) (Lisinopril [Lisinopril] 20 MG) PO SCH (10:00)
[2017-10-09] MEDS ORDERED: MULTIVITAMIN TABLET PO SCH (10:00)
[2017-10-09] MEDS ORDERED: (PENDING PHARMACY ID) (Simvastatin [Simvastatin] 20 MG) PO SCH (10:00)
--- NOTE | 2017-10-09 10:20 | EKG REPORT ---
SEVERITY:- ABNORMAL ECG - SINUS RHYTHM PAIRED VENTRICULAR PREMATURE COMPLEXES LEFT BUNDLE BRANCH BLOCK : Confirmed by: Radha Marinelli 09-Oct-2017 10:19:54
[2017-10-09] MEDS: METOPROLOL TARTRATE 25 MG TABLET PO SCH (10:51)
[2017-10-09 11:37] VITALS: BP 146/66
[2017-10-09] MEDS: NORMAL SALINE 1000 ML 1,000 ML IV PRN (13:06)
--- NOTE | 2017-10-09 14:30 | CONSULTATION REPORT E ---
Consultation Report NAME: CATY LEE : 1935 AGE: 82Y DATE: 10/09/2017 316 A TO: LAURIE FAUST M.D. FROM: Pablo ELIAS, Requesting Physician TIME: Patient seen at 11:00 a.m. today. REASON FOR CONSULTATION: Atrial fibrillation with rapid ventricular response, converted to sinus bradycardia. The patient has features of tachybrady syndrome. HISTORY OF PRESENT ILLNESS: The patient is a pleasant 81-year-old female with known history of hypertension, chronic left bundle branch block pattern, and hyperlipidemia, who states that in 2009 she had an ablation for atrial arrhythmia. It does not clear whether it was an SVT or atrial flutter or atrial fibrillation. The patient had remained asymptomatic until last night when she started having episodes of palpitations, which she complains of irregular heartbeat with lightheadedness. There is no syncope. There is no chest pain or discomfort. There is no shortness of breath. There are no TIA or CVA symptoms. There is no leg edema. There is no PND, orthopnea. The patient did feel her palpitations. In the emergency room, she was found to have sinus rhythm with sinus bradycardia with left bundle branch block pattern with frequent apices. Last night, she went into atrial fibrillation with rapid ventricular response and she was initially placed on amiodarone drip, which had to be held, so she converted to sinus bradycardia with a heart rate going down to 46, although the patient has been asymptomatic. When the heart rate was up, the patient did have palpitations and some dizziness, but blood pressure was stable and there was no chest pain or discomfort and no shortness of breath. At present, the patient is in sinus bradycardia. The patient states this is the first time she has had symptoms since her ablation in 2009. PAST MEDICAL HISTORY: Positive for history of hypertension. Denies history of [place] or coronary artery disease or angina. She has no history of diabetes mellitus or thyroid disease. She states that she has a problem with her eye and needs eye surgery and needs cardiac clearance for that. She denies any history of rheumatic fever, congenital heart disease. History of hypertension, well controlled on NADEEN inhibitor at home. She is not on SA or AV lam block agent at home. There is no history of thyroid disease. There is a history of hyperlipidemia. There is no history of TIA or CVA. There is no history of asthma or bronchitis and no history of pulmonary embolism or sleep apnea. There is no history of seizures. PAST SURGICAL HISTORY: Positive for left breast lumpectomy, which was benign. She has also had melanoma removed from her left lower leg skin. This has not recurred and there is no sign of malignancy. She also had tonsillectomy when she was young. ALLERGIES: The patient has no known allergies. SOCIAL HISTORY: The patient does not smoke. There is no history of ETOH abuse. DISPOSITION: The patient is a FULL CODE. Her daughter is the surrogate healthcare decision maker. FAMILY HISTORY: Positive for coronary artery disease/[place] in her father who of an [place]. There is also cancer in a sister. The organ involved is not known. SOCIAL HISTORY: The patient was a former smoker. She has not smoked in many years. There is no history of ETOH abuse. MEDICATIONS: 1. Aspirin 325 mg p.o. x1. 2. Aspirin 81 mg p.o. daily. 3. Cetirizine (Zyrtec) 10 mg p.o. daily. 4. Lovenox 40 mg subcutaneously daily. 5. She was on an amiodarone drip, which has now been held. 6. Normal saline 50 mL wide open and normal saline at 75 mL per hour. 7. Metoprolol 25 mg p.o. q. 12 hours. 8. Simvastatin 20 mg p.o. daily at bedtime. 9. Multivitamin 1 tablet p.o. daily. 10. Prompton 3 acid ethyl esters with Lovaza 1 g p.o. daily. REVIEW OF SYSTEMS: CONSTITUTIONAL: Denies any fever, chills, or rigors. HEAD: Denies headache or head injury. EYES: No history of amblyopia or diplopia. States that there is a problem with her eye and needs surgery for that, but she is not really very detailed about the illness of her eye. There is no amaurosis fugax. EARS: No history of tinnitus. No history of hearing loss. No history of recurrent ear infections. NOSE: No history of hay fever. No history of nosebleeds. No history of nasal polyps. MOUTH: No history of altered taste sensation. No ulcers in the mouth. No bleeding from the gums. THROAT: No odynophagia or dysphagia. No history of recurrent sore throats. SKIN: No history of pruritus. Past history of melanoma of the skin with no recurrence. No history of psoriasis. No history of eczema. No history of pruritus. No history of yellowish discoloration of the skin. NECK: No neck pain. No swelling in the neck. LUNGS: No history of wheezing, cough, or sputum production. No history of asthma or COPD. No history of sleep apnea. No history of hemoptysis or pleuritic chest pain. No history of pulmonary embolism. CARDIAC: History of hypertension, well controlled on NADEEN inhibitor at home. No history of coronary artery disease. No history of congestive heart failure. History of atrial arrhythmia status post ablation 10 years ago. The patient, at present, presents with tachybrady syndrome with the patient having atrial fibrillation with rapid ventricular response and converts to sinus rhythm with a heart rate in the high 40s to the low 50s. No history of PND, orthopnea, leg edema. History of palpitations present. History of dizziness with the palpitations, but no syncope. No leg edema. GASTROINTESTINAL: No history of GERD. No history of peptic ulcer disease. No history of GI bleed. No history of altered bowel movements. No history of fatty food intolerance. No history of hepatitis. No history of cirrhosis. No history of jaundice. No history of hematemesis, hematochezia, or melena. ENDOCRINE: No history of diabetes mellitus. No history of thyroid disease. No history of polydipsia or polyuria. No history of heat or cold intolerance. RENAL: No history of chronic kidney disease. No symptoms of UTI. No history of hematuria, pyuria, dysuria. MUSCULOSKELETAL: History of arthritis present, but no history of collagen vascular disease. METABOLIC: History of hyperlipidemia present. No history of gout. CENTRAL NERVOUS SYSTEM: No history of TIA or CVA. No history of headaches, migraines, or seizures. No history of gait imbalance. No history of sleep apnea. PSYCHIATRIC: No history of anxiety or depression. No history of suicidal ideation or homicidal ideation. VASCULAR: No history of calf or buttock claudication. No history of DVT. HEMATOLOGICAL: No history of bleeding diathesis. No history of clotting disorders. HOME MEDICATIONS: Include: 1. Aspirin 325 mg p.o. daily. 2. Calcium carbonate 600 mg p.o. daily. 3. Cetirizine 10 mg p.o. daily. 4. Hydrochlorothiazide 25 mg p.o. daily. 5. Letrozole 2.5 mg p.o. daily. 6. Lisinopril 20 mg p.o. b.i.d. 7. Multivitamin 1 tablet p.o. daily. 8. Lovaza 1000 mg capsule 1 p.o. daily. 9. Simvastatin 20 mg p.o. daily. 10. Vitamin E 400 units p.o. daily. PHYSICAL EXAMINATION: GENERAL: The patient is well built and well nourished, in no acute distress. She is lying flat in bed with no problems. She is well groomed. VITAL SIGNS: She is afebrile with a temperature of 97.5 degrees Fahrenheit, pulse is 56 beats per minute, blood pressure 146/66, respirations are 20 per minute, O2 saturations are 96% on room air. HEAD: Atraumatic, normocephalic. EYES: Pupils are equal, round, regular, reactive to light and accommodation. Extraocular movements are normal. There is no conjunctival pallor. There is no scleral icterus. EARS: Tympanic membranes are intact. External auditory canals are clear. NOSE: There is no deviated nasal septum. There is no inflammation of the nasal mucous membrane. MOUTH: Mucous membranes of the mouth are slightly dry. Tongue is dry. There are no ulcers in the mouth. There is no bleeding from the gums. THROAT: There is no redness of the oropharynx. There is no exudate. SKIN: There is no skin rash. There is no petechia or ecchymosis. There are no skin lesions. NECK: Supple. There is no JVD. Carotids are equal. There is no bruit. There is no lymphadenopathy. There is no goiter. Trachea is central. LUNGS: Clear to auscultation and percussion without any rhonchi, rales, or wheezing. There is no chest wall tenderness. CARDIOVASCULAR: S1, S2 is heard. There is no S3 gallop. There is no S4 gallop. S1 is of normal intensity present since the patient is in sinus bradycardia. There is a systolic murmur in the left sternal border of the apex. There is no rub. ABDOMEN: Soft, nontender. There is no hepatosplenomegaly. Bowel sounds are well heard. There are no tender areas or masses. EXTREMITIES: Femorals are well felt. Leg pulses are well felt. There are no femoral bruits. There is no cyanosis or clubbing. There is no pedal edema. There is no cellulitis. There is no DVT or calf tenderness. CENTRAL NERVOUS SYSTEM: The patient is conscious, awake, alert, oriented x3 with no focal deficit. PSYCHIATRIC: The patient's judgment and insight are intact. Her affect is normal. DIAGNOSTIC STUDIES: Review of the monitor strip shows no ventricular arrhythmia. The patient, last night, had atrial fibrillation with a ventricular response 138-140 beats per minute, subsequently went into sinus bradycardia after she received her shot duration of amiodarone infusion. Her EKG shows atrial fibrillation with left bundle branch block pattern at 116 beats per minute. This is the second EKG. Her EKG on admission shows sinus rhythm with blanchable apices. Left bundle branch block pattern, which is chronic. The patient's chest x-ray is negative for any acute process. NOTE: All the EKGs that were done and the EKG strips and the chest x-ray was reviewed and interpreted by me. LABORATORY: The patient's white count is 10,800, hemoglobin is 13.8, hematocrit is 40.9, platelet count is 319,000. The patient's sodium is 137, potassium 4.4, chloride is 100, CO2 is 29. The patient's BUN is 34, creatinine 0.82. GFR is greater than 60. Glucose is 90, calcium is 10, the magnesium is 2.0, phosphorus 3.7. Her CPK and CPK-MBs are negative. The troponin I is negative/indeterminate at 0.056, 0.045 and 0.027. Her triglycerides are 97. Her total cholesterol is 167.92. Her LDL cholesterol is very good at 75, HDL cholesterol is good at 67. Her thyroid function test shows a low TSH of 0.41, but her free T4 is normal at 1.70 and a free T4 is normal at 3.42. Her liver function tests show borderline elevated AST of 39 with 36 *------*. The rest of the liver function tests are normal. IMPRESSION: 1. Atrial fibrillation with rapid ventricular response, paroxysmal, converted to sinus bradycardia. 2. Sick sinus syndrome/tachybrady syndrome. In view of unable to give any meaningful or AV lam block agents or drugs to keep her in sinus rhythm, the patient will definitely need a permanent pacemaker to protect her for bradycardia induced by medication. 3. Hypertension. 4. Systolic murmur. 5. Hyperlipidemia. 6. Arthritis. RECOMMENDATIONS: Would strongly recommend transfer the patient to tertiary care center for placement of a permanent pacemaker and subsequently an anti-arrhythmic agent. Also, would recommend that the patient should have an echocardiogram and later a stress test. These can be done after the permanent pacemaker has been placed or they can do the echocardiogram prior to the pacemaker insertion. Would strongly recommend that the patient be transferred to a tertiary care center. The patient was seen for about 50 minutes with more than 50% of the time spent in direct patient care. The patient's medications have been reviewed and medication adjustments have been suggested. Note that the family *------*. Also, Lopressor has not yet been given to the patient because of bradycardia. NOTE: Medical decision making is of high complexity. The case has been discussed with the hospitalist and arrangements have been made for the patient to be transferred. The patient, if she desires, can follow up with me, the option given to the patient. Initially, the patient wanted to go to her ex-hospital, but later said that she would prefer someone in [facility]. Hence, Dr. Thakur has made arrangements for the patient to be transferred to [facility] in [place]. DICTATING PHYSICIAN: LAURIE FAUST M.D. [id number] PHY#: [id number] ID: [id number] JOB#: [id number] ACCT: [id number] cc:LAURIE FAUST M.D. >
[2017-10-09 14:58] LABS: CREATINE KINASE MB 2.2 ng/mL (<4.55); TROPONIN I 0.017 ng/mL
--- NOTE | 2017-10-09 23:20 | EKG REPORT ---
SEVERITY:- ABNORMAL ECG - SINUS RHYTHM VENTRICULAR PREMATURE COMPLEX PROBABLE LEFT ATRIAL ABNORMALITY LEFT BUNDLE BRANCH BLOCK : Confirmed by: Radha Marinelli 09-Oct-2017 23:19:56
[2017-10-10] MEDS ORDERED: OMEGA-3 ACID ETHYL ESTERS 1 GM CAPSULE PO SCH (10:00)
[2017-10-10] MEDS ORDERED: VITAMIN E (DL, ACETATE) 400 UNIT CAPSULE PO SCH (10:00)
[2017-10-10] MEDS ORDERED: (PENDING PHARMACY ID) (Omega-3/Dha/Epa/Fish Oil [Fish Oil 1,000 Mg Softgel] 1,000 MG) PO SCH (10:00)
== END 2017-10-09 15:15 | disposition short-term general hospital (02) ==
LOC: ER 13:17 → EH 17:34 → 4N 20:05 → 3W 22:00
PROVIDERS: ADMIT Internal Medicine; ATTEND Internal Medicine
DX: I49.9 Cardiac arrhythmia, unspecified (principal); I25.10 Atherosclerotic heart disease of native coronary artery without angina pectoris; I10 Essential (primary) hypertension; R55 Syncope and collapse; I49.5 Sick sinus syndrome; I44.7 Left bundle-branch block, unspecified; R01.1 Cardiac murmur, unspecified; E78.5 Hyperlipidemia, unspecified; I48.0 Paroxysmal atrial fibrillation; M19.90 Unspecified osteoarthritis, unspecified site; I25.2 Old myocardial infarction; Z79.899 Other long term (current) drug therapy; Z79.82 Long term (current) use of aspirin; Z98.890 Other specified postprocedural states; Z85.820 Personal history of malignant melanoma of skin; Z82.49 Family history of ischemic heart disease and other diseases of the circulatory system; Z87.891 Personal history of nicotine dependence
CPT/HCPCS: 93005 ×3; 94640; 99285; 96360; 36415 ×2; 84439; 82553 ×2; 82550 ×2; 83735; 84100; 84443; 85025; 80048; 80053; 84484 ×2; 84481; 80061; 71045; 93010 ×2; G0378 ×3; A9270 ×6; J3490; J1650; J7060; J7030 ×2; J7040; J0282

== ENCOUNTER 2018-02-15 01:12 | Emergency (ER) | payer MEDICARE ==
[2018-02-15 01:47] VITALS: BP 136/69
--- NOTE | 2018-02-15 02:19 | ER Document Report ---
ED General - General Mode of Arrival: Ambulatory Information source: Patient TRAVEL OUTSIDE OF THE [place] IN LAST 30 DAYS: No - General Chief Complaint: Abdominal Swelling Stated Complaint: LEFT SIDE PAIN/SWELLING Time Seen by Provider: 02/15/18 02:00 Notes: Patient is an 82-year-old female with a pacemaker and a history of afib presents to the emergency department accompanied by daughter and son complaining of left upper extremity swelling and abdominal swelling onset today. Patient states that she was discharged from [facility] today following a hysterectomy due to suspicions of cancer (yet to receive results from biopsy) and a diagnosis of a subclavian blood clot. Daughter states on their way home, the patient began to "leak fluid" from the left arm and abdomen area. She states while in the hospital , the patient became dehydrated and received a copious amount of fluids today. She states she was told to resume taking Eliquis today and to follow up on 02/18/2018. Patient denies any trouble breathing, chest pain, numbness or tingling sensations or abdominal pain. Patient's PCP is Dr. Brown. (LUCHO SANCHEZ) - Related Data Allergies/Adverse Reactions: No Known Allergies Allergy (Verified 10/08/17 22:01) Past Medical History - General Information source: Patient, Relative - Social History Smoking Status: Unknown if Ever Smoked Family History: Reviewed & Not Pertinent - Past Medical History Cardiac Medical History: Reports: Hx Atrial Fibrillation, Hx Heart Attack - ? 2001, Hx Hypercholesterolemia, Hx Hypertension - on med Musculoskeletal Medical History: Reports Hx Arthritis Past Surgical History: Reports: Hx Breast Surgery - lumpectomy left, Hx Pacemaker - Immunizations Hx Diphtheria, Pertussis, Tetanus Vaccination: No Hx Pneumococcal Vaccination: 02/19/05 Review of Systems - Review of Systems Constitutional: No symptoms reported EENT: No symptoms reported Cardiovascular: No symptoms reported Respiratory: No symptoms reported Gastrointestinal: See HPI, Abdominal pain Genitourinary: No symptoms reported Female Genitourinary: No symptoms reported Musculoskeletal: See HPI Skin: No symptoms reported Hematologic/Lymphatic: No symptoms reported Neurological/Psychological: No symptoms reported -: Yes All other systems reviewed and negative Physical Exam - Vital signs Vitals: Temp Pulse Resp BP Pulse Ox 97.3 F 61 18 136/69 H 98 02/15/18 01:46 02/15/18 01:46 02/15/18 01:46 02/15/18 01:46 02/15/18 01:46 - Notes Notes: GENERAL: Alert, interacts well. No acute distress. HEAD: Normocephalic, atraumatic. EYES: Pupils equal, round, and reactive to light. Extraocular movements intact. ENT: Oral mucosa moist, tongue midline. NECK: Full range of motion. Supple. Trachea midline. LUNGS: Clear to auscultation bilaterally, no wheezes, rales, or rhonchi. No respiratory distress. HEART: Regular rate and rhythm. No murmurs, gallops, or rubs. ABDOMEN: Soft, non-tender. Bowel sounds present in all 4 quadrants. EXTREMITIES: Moves all 4 extremities spontaneously. Edema to the left upper extremity which is seeping fluid. 2+ pulses. No signs of cellulitis. Good profusion. NEUROLOGICAL: Alert and oriented x3. Normal speech. PSYCH: Normal affect, normal mood. SKIN: Warm, dry, normal turgor. 5 trochanter states across the abdomen, well- appearing, bruising. (LUCHO SANCHEZ) Course - Re-evaluation Re-evalutation: 02/15/18 02:19 Patient is well-appearing alert oriented recently had a hysterectomy in outside hospital. Daughter states she was given fluids and upon traveling home they noticed that she was having watery weeping from her left upper extremity. She was told she had a blood clot in her shoulder and her left upper extremity and was restarted on her Eliquis for paroxysmal A. fib. She is currently taking her blood splinter as directed. She denies any chest pain or shortness of breath or abdominal pain at this time. She states that she thought she had minor weeping around her abdomen but otherwise no weeping of her lower extremities. Her symptoms are suggestive of IV fluid she received in having another clot in her left upper extremity is causing back pressure which is causing weeping of her left upper extremity which is minor. I explained the pathology to the family who did not feel like any labs or imaging warranted at this time based on history clot from outside hospital per the daughter who is a good historian. Advised to continue take Eliquis she has follow-up with her primary care physician this coming Saturday. I did give him return precautions regarding any signs of infection or worsening of symptoms to return for reevaluation. Of note, she has no physical findings of congestive heart failure causing this at this time is isolated to only her left upper extremity with known DVT. No weeping in other extremities no chest pain or shortness of breath with normal lung exam (JERAMIE HELM) - Vital Signs Vital signs: Temp Pulse Resp BP Pulse Ox 97.3 F 65 18 136/69 H 98 02/15/18 01:46 02/15/18 02:20 02/15/18 01:46 02/15/18 01:46 02/15/18 01:46 Discharge - Discharge Clinical Impression: Edema extremities Condition: Good Disposition: HOME, SELF-CARE Instructions: Edema, Peripheral ([facility]) Additional Instructions: Please follow-up with your primary care physician on Saturday as previously scheduled or sooner for any other concerns in the emergency department Referrals: LUIS IQBAL MD [EMERITUS] - Follow up as needed Scribe Attestation: 02/16/18 15:45 I personally performed the services described in the documentation, reviewed and edited the documentation which was dictated to the scribe in my presence, and it accurately records my words and actions (JERAMIE HELM) Scribe Documentation - Scribe Written by Michael:: Michael Jade, 02/15/2018 02:35 acting as scribe for :: Anthony
== END 2018-02-15 02:36 | disposition home or self-care (01) ==
LOC: ER 01:12
DX: R60.0 Localized edema (principal); R19.00 Intra-abdominal and pelvic swelling, mass and lump, unspecified site; R10.9 Unspecified abdominal pain; I48.91 Unspecified atrial fibrillation; M79.89 Other specified soft tissue disorders; I10 Essential (primary) hypertension; Z79.01 Long term (current) use of anticoagulants; Z79.899 Other long term (current) drug therapy; Z90.710 Acquired absence of both cervix and uterus
CPT/HCPCS: 99283

== ENCOUNTER 2018-06-24 06:31 | Day surgery (SDC) | payer MEDICARE ==
[~2018-06-24 06:31] MED LIST: BUPIVACAINE HCL 0.75% INJ/PF (7.5 MG/1 ML) 10 ML SDV OS PRN; KETOROLAC TROMETHAMINE 0.45% 4 DROP/0.4 ML DROPERETTE OS PRN; LIDOCAINE 4% INJ/PF (40 MG/ML) 5 ML AMPUL OS PRN
[2018-06-24] MEDS ORDERED: CHONDR SU A NA/HYALUR INTRAOC KIT (SURGICARE) ONE (06:57)
[2018-06-24] MEDS ORDERED: EPINEPHRINE INJ/PF 1 MG/1 ML AMPULE ONE (06:57)
[2018-06-24] MEDS ORDERED: LIDOCAINE 1% INJ-PF (10 MG/ML) 30 ML SDV ONE (06:57)
[2018-06-24] MEDS: TROPICAMIDE 1% OPH SOLN 3 ML OS PRN ×3 (07:00→07:25)
[2018-06-24] MEDS: CYCLOPENTOLATE 0.2%/PHENYLEPHRINE 1% OPH SOLN 2 ML OS PRN ×3 (07:00→07:25)
[2018-06-24] MEDS: TETRACAINE HCL 0.5% OPH SOLN 0.6 ML DROPERETTE OS PRN ×2 (07:00→07:25)
[2018-06-24] MEDS: BESIFLOXACIN HCL 0.6% OPH SUSP 5 ML BOTTLE OS PRN ×5 (07:00→07:58)
[2018-06-24] MEDS ORDERED: FENTANYL CITRATE INJ/PF 100 MCG/2 ML AMPUL ONE (07:15)
[2018-06-24] MEDS ORDERED: ONDANSETRON HCL INJ/PF 4 MG/2 ML SDV ONE (07:15)
[2018-06-24] MEDS ORDERED: MIDAZOLAM 2 MG/2 ML INJ ONE (07:15)
[2018-06-24] MEDS: DORZOLAMIDE HCL 2%/TIMOLOL MALEAT 0.5% OPH SOLN 10 ML OS PRN ×2 (07:51→07:58)
--- NOTE | 2018-06-24 10:57 | [facility] OPERATIVE REPORT E ---
[facility] Operative Report NAME: CATY LEE AGE: 82Y DATE OF SURGERY: 06/24/2018 ROOM: PREOPERATIVE DIAGNOSIS: CATARACT, LEFT EYE. POSTOPERATIVE DIAGNOSIS: CATARACT, LEFT EYE. PROCEDURE PERFORMED: PHACOEMULSIFICATION WITH POSTERIOR CHAMBER INTRAOCULAR LENS, LEFT EYE. SURGEON: MARA RASCON MD ANESTHESIA: TOPICAL WITH MAC. INDICATIONS FOR SURGERY: Difficulty reading road signs and glare at night. PROCEDURE: The patient was brought to the Operating Room and placed on the operative table. Following tetracaine drops, topical anesthesia was administered. This consisted of instrument wipe pledgets soaked in a solution of 4% Xylocaine mixed with 0.75% Marcaine in a 1:2 ratio. A 2 x 1 cm pledget was placed in the superior fornix. A 1 x 1 cm pledget was placed in the inferior fornix. The eye was patched shut for 5 minutes. The patch was removed. The eye was sterilely prepped and draped in the usual manner. Lid speculum was placed in the eye. The pledgets were removed. 4-0 black silk sutures were placed around the superior and the inferior rectus muscles to be used as traction. A conjunctival peritomy was made at the 10 o'clock position. Hemostasis was obtained with bipolar cautery. A posterior limbal groove was created using a crescent knife and dissected anteriorly towards the cornea. A sharp point blade was used to create a paracentesis site at the 2 o'clock position. A 2.4 mm keratome was used to enter the anterior chamber through the groove. Viscoelastic was injected into the anterior chamber. An anterior capsulotomy was performed using Utrata forceps in a capsulorrhexis fashion. Hydrodissection and hydrodelineation were performed. Phacoemulsification was performed in earkke-pyx-gvgveen technique. A total of 6.13 CDE phaco time was used. Following this, the I/A unit was used to remove residual cortex. Viscoelastic was injected into the capsular bag. Intraocular lens model [id number], 21.5 diopters, serial number [id number] was placed in the capsular bag. The I/A unit was used to remove residual viscoelastic. The wound was seen to be watertight under high and low pressure, and no sutures were placed. The intraocular lens was well centered. The pressure was adjusted in the eye to normal pressure. The 4-0 black silk sutures and lid speculum were removed. The eye was shielded after Besivance drops were placed. The patient tolerated the procedure well and was sent to the Recovery Room in good condition. A drop of Cosopt was placed in the eye at the end of surgery. DICTATING PHYSICIAN: MARA RASCON M.D. DICTATING PHYSICIAN: MARA RASCON M.D. [id number] PHY#: [id number] ID: [id number] JOB#: [id number] ACCT: [id number] cc:MARA RASCON M.D. >
--- NOTE | 2018-06-24 10:57 | [facility] DISCHARGE SUMMARY E ---
[facility] Discharge Summary NAME: CATY LEE AGE: 82Y ADMITTED: 06/24/2018 DISCHARGED: 06/24/2018 FINAL DIAGNOSIS: CATARACT, LEFT EYE. HOSPITAL COURSE: The patient is an 82-year-old lady who underwent uneventful cataract extraction with intraocular lens implant, left eye on 06/24/2018. She will be discharged to home. She is instructed to resume preoperative medications, take Tylenol as needed for discomfort, to keep her eye shielded, to use Besivance, Durezol and Prolensa at 3 p.m. and 8 p.m., and to follow up in my office in 1 day. DICTATING PHYSICIAN: MARA RASCON M.D. [id number] PHY#: [id number] ID: [id number] JOB#: [id number] ACCT: [id number] cc:MARA RASCON M.D. >
== END 2018-06-24 08:59 | disposition home or self-care (01) ==
LOC: SC 06:31
PROVIDERS: ATTEND Ophthalmology
DX: H25.813 Combined forms of age-related cataract, bilateral (principal); H04.123 Dry eye syndrome of bilateral lacrimal glands; H01.002 Unspecified blepharitis right lower eyelid; H01.005 Unspecified blepharitis left lower eyelid; H02.423 Myogenic ptosis of bilateral eyelids; E78.00 Pure hypercholesterolemia, unspecified; I11.9 Hypertensive heart disease without heart failure; I25.2 Old myocardial infarction; Z79.82 Long term (current) use of aspirin; Z79.899 Other long term (current) drug therapy; Z79.01 Long term (current) use of anticoagulants; Z85.3 Personal history of malignant neoplasm of breast; Z95.0 Presence of cardiac pacemaker
CPT/HCPCS: 66984; V2632; J2250; J3490 ×4; A9270; J0171; J3010; J2405; 142

== ENCOUNTER 2018-08-19 06:55 | Day surgery (SDC) | payer MEDICARE ==
[~2018-08-19 06:55] MED LIST changes: +BUPIVACAINE HCL 0.75% INJ/PF (7.5 MG/1 ML) 10 ML SDV OD PRN; -BUPIVACAINE HCL 0.75% INJ/PF (7.5 MG/1 ML) 10 ML SDV OS PRN; +DORZOLAMIDE HCL 2%/TIMOLOL MALEAT 0.5% OPH SOLN 10 ML OD PRN; +FENTANYL CITRATE INJ/PF 100 MCG/2 ML AMPUL ONE; +KETOROLAC TROMETHAMINE 0.45% 4 DROP/0.4 ML DROPERETTE OD PRN; -KETOROLAC TROMETHAMINE 0.45% 4 DROP/0.4 ML DROPERETTE OS PRN; +LIDOCAINE 0.5% INJ-PF (5 MG/ML) 50 ML SDV ONE; +LIDOCAINE 4% INJ/PF (40 MG/ML) 5 ML AMPUL OD PRN; -LIDOCAINE 4% INJ/PF (40 MG/ML) 5 ML AMPUL OS PRN; +MIDAZOLAM 2 MG/2 ML INJ ONE
[2018-08-19] MEDS: TETRACAINE HCL 0.5% OPH SOLN 0.6 ML DROPERETTE OD PRN ×2 (07:31→07:55)
[2018-08-19] MEDS: TROPICAMIDE 1% OPH SOLN 3 ML OD PRN ×3 (07:32→07:53)
[2018-08-19] MEDS: BESIFLOXACIN HCL 0.6% OPH SUSP 5 ML BOTTLE OD PRN ×3 (07:32→08:31)
[2018-08-19] MEDS: CYCLOPENTOLATE 0.2%/PHENYLEPHRINE 1% OPH SOLN 2 ML OD PRN ×3 (07:32→07:53)
[2018-08-19] MEDS: CHONDR SU A NA/HYALUR INTRAOC KIT (SURGICARE) ONE ×2 (08:18)
[2018-08-19] MEDS: EPINEPHRINE INJ/PF 1 MG/1 ML AMPULE ONE ×2 (08:18)
[2018-08-19] MEDS: LIDOCAINE 1% INJ-PF (10 MG/ML) 30 ML SDV ONE ×2 (08:20)
--- NOTE | 2018-08-19 12:30 | [facility] OPERATIVE REPORT E ---
[facility] Operative Report NAME: CATY LEE AGE: 83Y DATE OF SURGERY: 08/19/2018 ROOM: PREOPERATIVE DIAGNOSIS: CATARACT, RIGHT EYE. POSTOPERATIVE DIAGNOSIS: CATARACT, RIGHT EYE. PROCEDURE PERFORMED: PHACOEMULSIFICATION WITH POSTERIOR CHAMBER INTRAOCULAR LENS, RIGHT EYE. SURGEON: MARA RASCON MD ANESTHESIA: TOPICAL WITH MAC. INDICATIONS FOR SURGERY: Difficulty with glare with driving. PROCEDURE: The patient was brought to the Operating Room and placed on the operative table. Following tetracaine drops, topical anesthesia was administered. This consisted of instrument wipe pledgets soaked in a solution of 4% Xylocaine mixed with 0.75% Marcaine in a 1:2 ratio. A 2 x 1 cm pledget was placed in the superior fornix. A 1 x 1 cm pledget was placed in the inferior fornix. The eye was patched shut for 5 minutes. The patch was removed. The eye was sterilely prepped and draped in the usual manner. Lid speculum was placed in the eye. The pledgets were removed. 4-0 black silk sutures were placed around the superior and the inferior rectus muscles to be used as traction. A conjunctival peritomy was made at the 10 o'clock position. Hemostasis was obtained with bipolar cautery. A posterior limbal groove was created using a crescent knife and dissected anteriorly towards the cornea. A sharp point blade was used to create a paracentesis site at the 2 o'clock position. A 2.4 mm keratome was used to enter the anterior chamber through the groove. Viscoelastic was injected into the anterior chamber. An anterior capsulotomy was performed using Utrata forceps in a capsulorrhexis fashion. Hydrodissection and hydrodelineation were performed. Phacoemulsification was performed in jgwjjd-uri-pgozxko technique. A total of 5.11 CDE phaco time was used. Following this, the I/A unit was used to remove residual cortex. Viscoelastic was injected into the capsular bag. Intraocular lens model [id number], 22.0 diopters, serial number [id number] was placed in the capsular bag. The I/A unit was used to remove residual viscoelastic. The wound was seen to be watertight under high and low pressure, and no sutures were placed. The intraocular lens was well centered. The pressure was adjusted in the eye to normal pressure. The 4-0 black silk sutures and lid speculum were removed. The eye was shielded after Besivance drops were placed. The patient tolerated the procedure well and was sent to the Recovery Room in good condition. A drop of Cosopt was placed in the eye at the end of surgery. DICTATING PHYSICIAN: MARA RASCON M.D. DICTATING PHYSICIAN: MARA RASCON M.D. [id number] PHY#: [id number] ID: [id number] JOB#: [id number] ACCT: [id number] cc:MARA RASCON M.D. >
--- NOTE | 2018-08-19 12:30 | [facility] DISCHARGE SUMMARY E ---
[facility] Discharge Summary NAME: CATY LEE AGE: 83Y ADMITTED: 08/19/2018 DISCHARGED: 08/19/2018 FINAL DIAGNOSIS: CATARACT, RIGHT EYE HOSPITAL COURSE: The patient is a 83-year-old lady who underwent uneventful cataract extraction with intraocular lens implant, right eye on 08/19/18. She will be discharged to home. She is instructed to resume preoperative medications, take Tylenol as needed for discomfort, to keep her eye shielded, to use Besivance, Durezol and Prolensa at 3 p.m. and 8 p.m., and to follow up in my office in 1 day. DICTATING PHYSICIAN: MARA RASCON M.D. [id number] PHY#: [id number] ID: [id number] JOB#: [id number] ACCT: [id number] cc:MARA RASCON M.D. >
== END 2018-08-19 09:20 | disposition home or self-care (01) ==
LOC: SC 06:55
PROVIDERS: ATTEND Ophthalmology
DX: H25.811 Combined forms of age-related cataract, right eye (principal); Z96.1 Presence of intraocular lens; H04.123 Dry eye syndrome of bilateral lacrimal glands; H02.423 Myogenic ptosis of bilateral eyelids; I10 Essential (primary) hypertension; Z79.82 Long term (current) use of aspirin; Z79.01 Long term (current) use of anticoagulants; Z95.0 Presence of cardiac pacemaker; Z79.899 Other long term (current) drug therapy
CPT/HCPCS: 66984; V2632; J2250; J3490 ×4; A9270; J0171; 142; J3010